=== PATIENT | female | born 1985 | race African-American/Black ===

== ENCOUNTER 2018-09-05 11:00 | Day surgery (SDC) | payer MEDICARE, OTHER ==
[2018-09-04 16:13] VITALS: BMI 43.9
[2018-09-05] MEDS ORDERED: PROPOFOL 20 ML ONE (13:21)
[2018-09-05 15:44] VITALS: TEMP 97.9
[2018-09-05 16:08] VITALS: BP 117/74; PULSE 90
--- NOTE | 2018-09-07 15:56 | PATH ---
Surgical Pathology Report Patient Name: [facility]. Rec. #: [id number] /Age/Gender: 1985 (Age: 32) / F Account: [id number] Location: [facility] AM[facility] Taken: 09/05/2018 Received: 09/05/2018 Reported: 09/07/2018 Physicians: Lacie Carbajal M.D. Specimen(s) Received A: SECOND PORTION OF DUODENUM B: BX GASTRIC ANTRUM C: BX GE JUNCTION Clinical History Abdominal pain Postoperative diagnosis: Gastritis Final Diagnosis A. SECOND PORTION OF DUODENUM, BIOPSY: DUODENAL MUCOSA WITH NO PATHOLOGIC FINDINGS. B. GASTRIC ANTRUM, BIOPSY: MILD CHRONIC GASTRITIS. IMMUNOSTAIN IS NEGATIVE FOR H. PYLORI ORGANISMS. C. GE JUNCTION, BIOPSY: GASTRIC CARDIA-TYPE MUCOSA SHOWING MILD CHRONIC INFLAMMATION. SCANT ESOPHAGEAL (SQUAMOUS) MUCOSA WITH NO PATHOLOGIC FINDINGS. NEGATIVE FOR INTESTINAL METAPLASIA. Electronically Signed Giulia Torrez M.D. Gross Description A. Received in formalin, labeled "biopsy second portion of duodenum" are 2 benson, irregular portions of soft tissue measuring 0.2 and 0.3 cm. in greatest dimension. The specimens are submitted in toto in one cassette. B. Received in formalin, labeled "biopsy gastric antrum" is a benson, irregular portion of soft tissue measuring 0.4 cm. in greatest dimension. The specimen is submitted in toto in one cassette. C. Received in formalin, labeled "biopsy GE junction" is a benson, irregular portion of soft tissue measuring 0.5 cm. in greatest dimension. The specimen is submitted in toto in one cassette. 09/06/2018 saudi09/06/2018
== END 2018-09-05 15:10 | disposition home or self-care (01) ==
LOC: FASU 11:00
PROVIDERS: ATTEND Internal Medicine Gastroenterology
PROC: 0DB68ZX Excision of Stomach, Via Natural or Artificial Opening Endoscopic, Diagnostic (ICD-10-PCS; 2018-09-05)
PROC: 0DB48ZX Excision of Esophagogastric Junction, Via Natural or Artificial Opening Endoscopic, Diagnostic (ICD-10-PCS; 2018-09-05)
PROC: 0DB98ZX Excision of Duodenum, Via Natural or Artificial Opening Endoscopic, Diagnostic (ICD-10-PCS; principal; 2018-09-05 13:49)
DX: R10.9 Unspecified abdominal pain (principal); K29.50 Unspecified chronic gastritis without bleeding; K22.9 Disease of esophagus, unspecified
CPT/HCPCS: 84703; 88305-TC; 88342-TC